=== PATIENT | male | born 1995 | race Caucasian/White ===

== ENCOUNTER 2016-06-03 10:26 | Emergency (ER) | payer OTHER ==
--- NOTE | 2016-06-03 10:46 | UC ---
Throat Pain/Nasal Tee HPI - HPI Summary HPI Summary: ST for about a week. Denies fever, cough, nasal congestion, rash, or n/v. Was dx with thrush this fall, denies hx of DM, steroids, abx, or immunosuppressants. - History of Current Complaint Stated Complaint: SORE THROAT Time Seen by Provider: 06/03/16 10:35 Hx Obtained From: Patient Onset/Duration: Gradual Onset, Lasting Days Severity: Mild Cough: None Associated Signs & Symptoms: Negative: Wheezing, Sinus Discomfort, Nasal Discharge, Fever, Vomiting, Rash - Allergies/Home Medications Allergies/Adverse Reactions: Allergies Allergy/AdvReac Type Severity Reaction Status Date / Time No Known Allergies Allergy Verified 06/03/16 10:43 Home Medications: Home Medications NK [No Home Medications Reported] 06/03/16 [History Confirmed 06/03/16] PMH/Surg Hx/FS Hx/Imm Hx Previously Healthy: Yes - Family History Known Family History: Positive: None Negative: Hypertension - pt denies - Social History Occupation: Student Lives: Alone Alcohol Use: Weekly - 3 times weekly Substance Use Type: None Smoking Status (MU): Never Smoked Tobacco Review of Systems Constitutional: Negative Skin: Negative Eyes: Negative ENT: Sore Throat Respiratory: Negative Cardiovascular: Negative Gastrointestinal: Negative Genitourinary: Negative Motor: Negative Neurovascular: Negative Musculoskeletal: Negative Neurological: Negative Psychological: Negative All Other Systems Reviewed And Are Negative: Yes Physical Exam Triage Information Reviewed: Yes Appearance: Well-Appearing, No Pain Distress, Well-Nourished Vital Signs Reviewed: Yes Eye Exam: Normal Eyes: Positive: Conjunctiva Clear ENT: Negative: Pharyngeal erythema - injected, no erythema Dental Exam: Normal Neck exam: Normal Neck: Positive: Supple, Nontender Respiratory Exam: Normal Respiratory: Positive: Chest non-tender, Lungs clear, Normal breath sounds, No respiratory distress, No accessory muscle use Cardiovascular Exam: Normal Cardiovascular: Positive: RRR, No Murmur Musculoskeletal Exam: Normal Neurological Exam: Normal Psychological Exam: Normal Skin Exam: Normal Throat Pain/Nasal Course/Dx - Differential Dx/Diagnosis Provider Diagnoses: viral pharyngitis Discharge - Discharge Plan Condition: Stable Disposition: HOME Patient Education Materials: Pharyngitis (ED) Additional Instructions: Rapid strep negative. As we discussed, I suspect a viral pharyngitis that should resolve within the next week or so. If you develop new fevers, trouble with breathing or swallowing , or if you suddenly worsen in any way, please return for a recheck.
[2016-06-03 10:58] VITALS: BP 128/73
== END 2016-06-03 11:15 | disposition home or self-care (01) ==
LOC: UCCORT 10:26
DX: J02.9 Acute pharyngitis, unspecified (principal)
CPT/HCPCS: 87651; 99201; G0463